=== PATIENT | female | born 1980 | race Two or more races ===

== ENCOUNTER 2021-09-03 15:19 | Emergency (ER) | payer OTHER ==
[~2021-09-03] VITALS: Ht 167.6 cm; Wt 81.2 kg
[2021-09-03] MEDS ORDERED: EFFER-K 10 MEQ10 MEQ PO (15:27)
== END 2021-09-03 21:11 | disposition home or self-care (01) ==
LOC: ER 15:19
DX: N93.8 Other specified abnormal uterine and vaginal bleeding (principal)